=== PATIENT | female | born 1970 | race African-American/Black ===

== ENCOUNTER 2019-11-17 09:01 | Emergency (ER) | payer OTHER, MEDICAID ==
[~2019-11-17] VITALS: Ht 172.7 cm; Wt 126.0 kg
[~2019-11-17 09:01] MED LIST: SEVE400 PO
[2019-11-17 10:24] VITALS: BP 153/89
== END 2019-11-17 10:50 | disposition short-term general hospital (02) ==
LOC: EMS 09:11
DX: T82.838A Hemorrhage due to vascular prosthetic devices, implants and grafts, initial encounter (principal); I13.11 Hypertensive heart and chronic kidney disease without heart failure, with stage 5 chronic kidney disease, or end stage renal disease; E11.22 Type 2 diabetes mellitus with diabetic chronic kidney disease; N18.6 End stage renal disease; Z99.2 Dependence on renal dialysis; Z88.1 Allergy status to other antibiotic agents

== ENCOUNTER 2025-03-12 11:14 | Emergency (ER) | payer OTHER, MEDICAID ==
[~2025-03-12] VITALS: Ht 172.7 cm; Wt 113.0 kg
[2025-03-12 11:18] VITALS: BP 153/91; PULSE 84; RESP 18; TEMP 98; O2SAT 98
== END 2025-03-12 12:05 | disposition home or self-care (01) ==
LOC: EMS 11:15
DX: T82.838A Hemorrhage due to vascular prosthetic devices, implants and grafts, initial encounter (principal); I10 Essential (primary) hypertension; E11.9 Type 2 diabetes mellitus without complications; Z99.2 Dependence on renal dialysis; Z88.1 Allergy status to other antibiotic agents; Z79.899 Other long term (current) drug therapy; Y84.1 Kidney dialysis as the cause of abnormal reaction of the patient, or of later complication, without mention of misadventure at the time of the procedure
CPT/HCPCS: 99283; Z7502